=== PATIENT | female | born 1985 | race Caucasian/White ===

== ENCOUNTER 2016-10-28 19:25 | Emergency (ER) | payer MEDICAID, OTHER ==
[~2016-10-28] VITALS: Ht 167.6 cm; Wt 67.0 kg
[~2016-10-28 19:25] MED LIST: DENIES MEDS
[2016-10-28 19:41] VITALS: Ht 167.6 cm; Wt 67.0 kg
[2016-10-28] MEDS ORDERED: AZIT250T94 PO (22:07)
[2016-10-28] MEDS ORDERED: ACET500C5 PO (22:08)
--- NOTE | 2016-10-28 22:09 | ERD ---
ER Documentation Chief Complaint Date/Time DATE: 10/28/16 TIME: 22:08 Chief Complaint cough x 1 week HPI Patient is a 31-year-old female, A2, who presents to the emergency separtment with a cough 1 week. Patient states that her cough is productive with yellow sputum production. Patient also reports yellow rhinorrhea. Patient states that she has not tried any medications yet. Patient states today she started having generalized body aches. Her current pain level is a 7 out of 10. Patient denies any ear pain, throat pain, chest pain, shortness of breath, abdominal pain, nausea, vomiting. Patient last menstrual period was approximately 2 months ago, does not recall exact date. Patient denies any pelvic pain, excessive vaginal discharge or vaginal bleeding. Patient has not seen an HIGHWAY ENGINEERING TECHNICIAN yet. ROS All systems reviewed and are negative except as per history of present illness. Medications Home Meds Active Scripts Acetaminophen* (Tylophen*) 500 Mg Capsule, 1 CAP PO Q6H Y for PAIN AND OR ELEVATED TEMP, #20 CAP Prov:VALERIA CHURCHILL PA-C 10/28/16 Azithromycin* (Zithromax*) 250 Mg Tablet, 250 MG PO .ZPACK DIRECTED, #6 TAB TAKE 500 MG (2 TABS) THE FIRST DAY THEN 250 MG (1 TAB) DAYS 2-5 Prov:VALERIA CHURCHILL PA-C 10/28/16 Reported Medications [Denies Meds] No Conflict Check 01/11/11 Allergies Allergies: Coded Allergies: No Known Drug Allergy (Verified Allergy, Mild, 01/11/11) PMhx/Soc History of Surgery: No Anesthesia Reaction: No Hx Neurological Disorder: No Hx Respiratory Disorders: No Hx Cardiac Disorders: No Hx Psychiatric Problems: No Hx Miscellaneous Medical Probl: No Hx Alcohol Use: No Hx Substance Use: No Hx Tobacco Use: No Physical Exam Vitals Vital Signs Date Time Temp Pulse Resp B/P Pulse Ox O2 Delivery O2 Flow Rate FiO2 10/28/16 23:20 97.9 104 16 115/56 100 Room Air 10/28/16 19:41 98.6 116 20 133/70 99 Physical Exam GENERAL: Well-developed, well-nourished female. Appears in no acute distress. HEAD: Normocephalic, atraumatic. No deformities or ecchymosis. EYE: Pupils equal, round, and reactive to light. EOMs intact. No conjunctival erythema. No scleral icterus. No eye discharge. ENT: External ear without any masses or tenderness. Auditory canals clear bilaterally. TM visualized bilaterally, non-erythematous, non-bulging. Nasal mucosa pink with no discharge. Oropharynx is pink without any tonsillar erythema or exudates. No uvula deviation. No kissing tonsils. NECK: Supple. No lymphadenopathy or thyromegaly. No meningismus. Trachea midline. LUNG: Clear to auscultation bilaterally. No rhonchi, wheezing, rales or coarse breath sounds. HEART: Regular rate and rhythm. No murmurs, rubs or gallops. ABDOMEN: Soft, nontender, and nondistended. Positive bowel sounds in all four quadrants. No rebound tenderness, no guarding. (-) McBurney's point tenderness. No CVA tenderness. BACK: No midline tenderness. Palpation in the bilateral lumbar paraspinalis muscles. EXTREMITES: Equal pulses bilaterally. No peripheral clubbing, cyanosis or edema. No unilateral leg swelling. NEUROLOGIC: Alert and oriented to person, place and time. Moving all four extremities. 5/5 strength in all extremities. Normal speech. Steady gait. Negative Brudzinski sign. Negative Kernig sign. SKIN: Normal color. Warm and dry. No rashes or lesions. Results 24 hrs Laboratory Tests Test 10/28/16 22:56 Bedside Urine Blood 2+ Bedside Urine Glucose (UA) Negative Bedside Urine Ketones (LAB) Negative Bedside Urine Leukocyte Esterase (L Negative Bedside Urine Nitrite (LAB) Negative Bedside Urine Protein (LAB) 2+ Bedside Urine pH (LAB) 7.0 Procedures/MDM MEDICAL DECISION MAKING: This is a 31-year-old female who presents with a productive cough 1 week. She states that she recently found out that she was however she denies any vaginal bleeding, vaginal discharge or pain. Patient has not seen OBGYN yet. Vital signs were reviewed. Patient was afebrile. Patient was not hypoxic. ENT exam was normal. Lung exam is normal. Abdominal exam is normal. Urine test was positive. Urine dip was negative for infection. Given that the patient is , chest x-ray was not obtained. Given these findings , the patients presentation is most consistent with acute bronchitis. I have a much lower clinical concern for bacterial infections including pneumonia, meningitis, sinusitis, otitis externa, acute otitis media, strep pharyngitis, epiglottitis, peritonsillar abscess, UTI or pyelonephritis. I will empirically treat patient for acute bronchitis with antibiotics. PRESCRIPTIONS: Tylenol Z-josemanuel DISCHARGE: At this time, patient is stable for discharge and outpatient management. Supportive therapies such as OTC throat lozenges, salt water gurgles, popsicles and jello discussed. I have instructed the patient to follow-up with his/her primary care physician in 1-2 days. I have instructed the patient to promptly return to the ER for any new or worsening symptoms including increased pain, swelling, fever, nausea, vomiting, weakness or difficulty breathing. The patient and/or family expressed understanding of and agreement with this plan. All questions were answered. Home care instructions were provided. Departure Diagnosis: Primary Impression: Acute bronchitis Bronchitis organism: unspecified organism Qualified Code: J20.9 - Acute bronchitis, unspecified organism Additional Impression: Weeks of gestation: unspecified Qualified Code: Z33.1 - , unspecified gestational age Condition: Stable Patient Instructions: Acute Bronchitis, , New Dx Referrals: [facility] YOU HAVE RECEIVED A MEDICAL SCREENING EXAM AND THE RESULTS INDICATE THAT YOU DO NOT HAVE A CONDITION THAT REQUIRES URGENT TREATMENT IN THE EMERGENCY DEPARTMENT. FURTHER EVALUATION AND TREATMENT OF YOUR CONDITION CAN WAIT UNTIL YOU ARE SEEN IN YOUR DOCTORS OFFICE WITHIN THE NEXT 1-2 DAYS. IT IS YOUR RESPONSIBILITY TO MAKE AN APPOINTMENT FOR FOLOW-UP CARE. IF YOU HAVE A PRIMARY DOCTOR --you should call your primary doctor and schedule an appointment IF YOU DO NOT HAVE A PRIMARY DOCTOR YOU CAN CALL OUR PHYSICIAN REFERRAL HOTLINE AT IF YOU CAN NOT AFFORD TO SEE A PHYSICIAN YOU CAN CHOSE FROM THE FOLLOWING [facility] [address] [facility]. [facility] [address] [facility]. [facility] [address] [facility] [address] [facility]. [facility] [address] [facility] [facility]. [address] [facility]. [facility] YOU HAVE RECEIVED A MEDICAL SCREENING EXAM AND THE RESULTS INDICATE THAT YOU DO NOT HAVE A CONDITION THAT REQUIRES URGENT TREATMENT IN THE EMERGENCY DEPARTMENT. FURTHER EVALUATION AND TREATMENT OF YOUR CONDITION CAN WAIT UNTIL YOU ARE SEEN IN YOUR DOCTORS OFFICE WITHIN THE NEXT 1-2 DAYS. IT IS YOUR RESPONSIBILITY TO MAKE AN APPOINTMENT FOR FOLOW-UP CARE. IF YOU HAVE A PRIMARY DOCTOR --you should call your primary doctor and schedule and appointment IF YOU DO NOT HAVE A PRIMARY DOCTOR YOU CAN CALL OUR PHYSICIAN REFERRAL HOTLINE AT . IF YOU CAN NOT AFFORD TO SEE A PHYSICIAN YOU CAN CHOSE FROM THE FOLLOWING [facility] INSTITUTIONS: [facility] [address] [place] [address] [facility] [address] [place] [address] [facility] [address] [place] [address] [facility] TECHN[place] [address] [facility] [address] [place] [address] OFFICE FAX YEVGENIY OMER [address] [place] [address] [address] [place] [address] [place] [address] FABIANA VELÁZQUEZNOMAN [address] [facility], [address], [facility] [address] [address] [address] [place] [address] [facility] [place] [address] [place] [address] [phone] [address] [facility] [address] - [address], [facility] [address] [address] [address] [facility] [address], [facility] [id number] [address] [address] [place] [address] Additional Instructions: Call your primary care doctor TOMORROW for an appointment during the next 1-2 days.See the doctor sooner or return here if your condition worsens before your appointment time. See [facility] TECHNICIAN referral list. Schedule appointment [facility]IGHW[facility] ENGINEERING TECHNICIAN as soon as possible for care. Drink a lot of fluids. Take only Tylenol for pain or fever. VALERIA CHURCHILL PA-C Oct 28, 2016 22:08
[2016-10-28 22:56] LABS: URINE BLOOD (Dip) POC 2+ (NEGATIVE)
[2016-10-28 23:20] VITALS: BP 115/56; PULSE 104; RESP 16; TEMP 97.9
== END 2016-10-28 23:21 | disposition home or self-care (01) ==
LOC: FTE 19:25
DX: J20.9 Acute bronchitis, unspecified (principal); Z33.1 Pregnant state, incidental
CPT/HCPCS: 81003; Z7502; 99283

== ENCOUNTER 2016-12-22 11:36 | Emergency (ER) | payer OTHER ==
[~2016-12-22] VITALS: Wt 74.0 kg
[~2016-12-22 11:36] MED LIST changes: +ACET500C5 PO; +AZIT250T94 PO
[2016-12-22] MEDS ORDERED: AZIT250T94 PO (12:26)
[2016-12-22] MEDS ORDERED: ALBU18HF INHALATION (12:26)
[2016-12-22] MEDS ORDERED: CETI10CA PO (12:26)
--- NOTE | 2016-12-22 12:28 | ERD ---
ER Documentation Chief Complaint Date/Time DATE: 12/22/16 TIME: 12:27 Chief Complaint FLU SYMPTOMS X 1 WEEK HPI This 31-year-old female presents with cough mainly for last week. She is in early . She denies fevers. She has productive sputum. She is here the child with similar cough. She is worried that they have some mold in the house and this may be because of her cough. ROS All systems reviewed and are negative except as per history of present illness. Medications Home Meds Active Scripts Albuterol Sulfate* (Ventolin HFA*) 18 Gm Hfa.aer.ad, 2 PUFF INHALATION Q4H, #1 INHALER Prov:MARLI HUANG MD 12/22/16 Azithromycin* (Zithromax*) 250 Mg Tablet, 250 MG PO .ZPACK DIRECTED, #6 TAB TAKE 500 MG (2 TABS) THE FIRST DAY THEN 250 MG (1 TAB) DAYS 2-5 Prov:MARLI HUANG MD 12/22/16 Cetirizine Hcl* (Zyrtec*) 10 Mg Capsule, 10 MG PO DAILY, #15 TAB.CHEW Prov:MARLI HUANG MD 12/22/16 Acetaminophen* (Tylophen*) 500 Mg Capsule, 1 CAP PO Q6H Y for PAIN AND OR ELEVATED TEMP, #20 CAP Prov:VALERIA CHURCHILL PA-C 10/28/16 Azithromycin* (Zithromax*) 250 Mg Tablet, 250 MG PO .ZPACK DIRECTED, #6 TAB TAKE 500 MG (2 TABS) THE FIRST DAY THEN 250 MG (1 TAB) DAYS 2-5 Prov:VALERIA CHURCHILL PA-C 10/28/16 Reported Medications [Denies Meds] No Conflict Check 01/11/11 Allergies Allergies: Coded Allergies: No Known Drug Allergy (Verified Allergy, Mild, 01/11/11) PMhx/Soc History of Surgery: No Anesthesia Reaction: No Hx Neurological Disorder: No Hx Respiratory Disorders: No Hx Cardiac Disorders: No Hx Psychiatric Problems: No Hx Miscellaneous Medical Probl: No Hx Alcohol Use: No Hx Substance Use: No Hx Tobacco Use: No Physical Exam Vitals Vital Signs Date Time Temp Pulse Resp B/P Pulse Ox O2 Delivery O2 Flow Rate FiO2 12/22/16 11:39 98.0 91 18 123/64 99 Physical Exam Const: [] Alert, not ill-appearing, speaking complete sentences Head: Atraumatic Eyes: Normal Conjunctiva ENT: Normal External Ears, Nose and Mouth. 3+ nasal congestion. Neck: Full range of motion..~ No meningismus. Resp: Clear to auscultation bilaterally. Slight wheezy cough without wheeze or rales at rest and no retractions per Cardio: Regular rate and rhythm, no murmurs Abd: Soft, non tender, non distended. Normal bowel sounds Skin: No petechiae or rashes Back: No midline or flank tenderness Ext: No cyanosis, or edema Neur: Awake and alert Psych: Normal Mood and Affect Procedures/MDM Patient presents with productive cough for last 1-2 weeks. X-rays deferred given state. Signs or symptoms do not suggest pneumonia, hypoxemia, respiratory distress. Given the productive cough she will be treated with Zithromax although some of her symptoms may be allergic will be given a trial of Zyrtec and Ventolin as well. Patient is advised to follow-up with primary doctor for allergy testing despite treatment. Patient should otherwise return to the ER for new or worsening symptoms. The patient was stable with no new complaints during the ER course. Clinically, there is no current evidence to suggest meningitis, sepsis, acute abdomen, pneumonia, acute coronary syndrome, pulmonary embolism, or any other emergent condition appearing to require further evaluation or hospitalization. The patient should certainly return for any new or worsening symptoms per the aftercare instructions. They should otherwise follow-up with her primary care doctor for reevaluation this week. Departure Diagnosis: Primary Impression: Cough Additional Impression: Upper respiratory infection URI type: unspecified URI Qualified Code: J06.9 - Upper respiratory tract infection, unspecified type Condition: Stable Patient Instructions: Cough, Chronic, Uncertain Cause, (Adult) Additional Instructions: Recommend allergy testing with primary doctor for persistent cough despite treatment. We will treat for allergies as well as upper respiratory infection currently. Recheck for new or worsening symptoms with primary care doctor as directed. MARLI HUANG MD Dec 22, 2016 12:28
[2016-12-22 13:47] VITALS: BP 106/52; PULSE 86; RESP 18; TEMP 98.6
== END 2016-12-22 13:51 | disposition home or self-care (01) ==
LOC: FTE 11:36
DX: O99.89 Other specified diseases and conditions complicating pregnancy, childbirth and the puerperium (principal); R05 Cough; O99.52 Diseases of the respiratory system complicating childbirth; J06.9 Acute upper respiratory infection, unspecified; Z3A.00 Weeks of gestation of pregnancy not specified
CPT/HCPCS: 99284

== ENCOUNTER 2017-05-05 20:59 | Outpatient (CLI) | payer OTHER ==
[~2017-05-05] VITALS: Ht 162.6 cm; Wt 89.7 kg
[~2017-05-05 20:59] MED LIST changes: +ALBU18HF INHALATION; +CETI10CA PO
[2017-05-05 21:24] VITALS: Ht 162.6 cm; Wt 89.7 kg
[2017-05-05 21:25] VITALS: BP 107/54; PULSE 96; RESP 16
--- NOTE | 2017-05-05 23:54 | RADRPT ---
PROCEDURE: US OB. CLINICAL INDICATION: Estimated weight, labor. Clinical estimate gestational age is 35 weeks 1 day with estimated date of delivery 06/08/2017 TECHNIQUE: Multiple sonographic images of the pelvis were obtained. The images were reviewed on a PACS workstation. COMPARISON: 02/02/2017 FINDINGS: There is a single live intrauterine gestation. Cardiac activity is present with 122 beats per minut e. There is a cephalic presentation. Measurements were made in order to determine age. The results are as follows: BPD =9.09 cm, 36 weeks 6 days HC =32.11 cm, 36 weeks 2 days AC =31.96 cm, 35 weeks 6 days FL =6.74 cm, 34 weeks 5 days. Estimated gestational age of approximately 36 weeks 0 days. The estimated date of delivery is 06/02/2017. The EFW = 2748 g, 6 pounds 1 ounce, 64.2% . The placenta is posterior and grade 1. There is no evidence for an abruption. There is a normal amount of amniotic fluid with an ALEXANDER = 15.12 cm. IMPRESSION: Single live intrauterine gestation of approximately 36 weeks 0 days based on ultrasound measurements . The estimated date of delivery is 06/02/2017 . RPTAT: HJES .Shiraz Gavin MD, Date Time Electronically viewed and signed by .Shiraz Gavin MD, MD on 05/05/2017 23:53 .S/
--- NOTE | 2017-05-06 00:21 | PN ---
Triage Information Date/Time Weeks of Gestation 38 weeks : 7 Para: 3 Diabetes: none Hypertention: none Additional information 31-year-old with IUP at 38 weeks presented with complaint of uterine contractions. She denied any leaking of fluid, vaginal bleeding or decreased movement. She was noted to be 1 cm dilated, long and high. NST was category 1. She was observed for couple of hours after hydration and repeat examination did not show any cervical change. Objective Vital Signs Date Time Temp Pulse Resp B/P Pulse Ox O2 Delivery O2 Flow Rate FiO2 05/05/17 21:25 98.1 96 16 107/54 Room Air Heart Rate: 130's Contractions: < 5 Minutes Apart Exam General appearance: Alert and oriented 4. Patient is not in any acute distress Abdomen: Soft, gravid, nontender, fundal height consistent with gestational age NST: Category 1 Cervical exam 1 cm/long and high No cervical change noted after observation in triage and hydration ALEXANDER: 15 Results/Medications Imaging Results PROCEDURE: US OB. CLINICAL INDICATION: Estimated weight, labor. Clinical estimate gestational age is 35 weeks 1 day with estimated date of delivery 06/08 TECHNIQUE: Multiple sonographic images of the pelvis were obtained. The images were reviewed on a PACS workstation. COMPARISON: 02/02/2017 FINDINGS: There is a single live intrauterine gestation. Cardiac activity is present with 122 beats per minute. There is a cephalic presentation. Measurements were made in order to determine age. The results are as follows: BPD = 9.09 cm, 36 weeks 6 days HC = 32.11 cm, 36 weeks 2 days AC = 31.96 cm, 35 weeks 6 days FL = 6.74 cm, 34 weeks 5 days. Estimated gestational age of approximately 36 weeks 0 days. The estimated date of delivery is 06/02/2017. The EFW = 2748 g, 6 pounds 1 ounce, 64.2% . The placenta is posterior and grade 1. There is no evidence for an abruption. There is a normal amount of amniotic fluid with an ALEXANDER = 15.12 cm. IMPRESSION: Single live intrauterine gestation of approximately 36 weeks 0 days based on ultrasound measurements. The estimated date of delivery is 06/02/2017 . Assessment/Plan IUP at 38 weeks False labor pain No cervical change Appropriate growth NST category 1 Normal ALEXANDER DC home Follow-up within 24-48 hours with primary OB Strict labor precaution and kick counts discussed with the patient RT triage as needed Patient verbalized understanding CECILIA MIDDLETON MD May 06, 2017 00:21
== END 2017-05-06 00:05 | disposition home or self-care (01) ==
LOC: OBT 20:59 → L-D 21:02 → OBT 05-06 00:05
PROVIDERS: ATTEND Obstetrics & Gynecology
DX: O62.9 Abnormality of forces of labor, unspecified (principal); Z3A.38 38 weeks gestation of pregnancy
CPT/HCPCS: 76815; Z7500; G0463

== ENCOUNTER 2017-11-29 02:05 | Emergency (ER) | END 2017-11-29 06:04 | disposition home or self-care (01) ==

== ENCOUNTER 2017-12-13 17:52 | Emergency (ER) | END 2017-12-13 19:36 | disposition home or self-care (01) ==

== ENCOUNTER 2018-07-23 10:52 | Emergency (ER) | END 2018-07-23 11:11 | disposition home or self-care (01) ==

== ENCOUNTER 2019-01-03 21:05 | Emergency (ER) | payer OTHER ==
[~2019-01-03] VITALS: Ht 167.6 cm; Wt 63.6 kg
[~2019-01-03 21:05] MED LIST changes: -ACET500C5 PO; -ALBU18HF INHALATION; +ALBU8.5H8 INH; -AZIT250T94 PO; +BENZ1LOZ52 MM; -DENIES MEDS; +FLUT9.9S NASAL; +IBUP-1542 PO; +PREN1TAB17 PO; +SODI126M NASAL
[2019-01-03 21:29] VITALS: Ht 167.6 cm; Wt 63.6 kg
[2019-01-04] MEDS ORDERED: NITR-58 PO (01:55)
--- NOTE | 2019-01-04 02:01 | ERD ---
ER Documentation Chief Complaint Chief Complaint Hematuria x 2 days and cough HPI Is a 33-year-old female who states she has had hematuria for the past 2 days. Also dysuria and frequency. However she is also not sure if she could be . No fever. No nausea or vomiting. ROS All systems reviewed and are negative except as per history of present illness. Medications Home Meds Active Scripts Nitrofurantoin Monohyd Macrocr* (Macrobid*) 100 Mg Capsr, 100 MG PO BID for 7 Days, CAP Prov:ARLENE VASQUEZ PA-C 01/04/19 Ibuprofen* (Motrin*) 600 Mg Tab, 600 MG PO Q6, #30 TAB Prov:MARIUSZ PATINO PA-C 07/23/18 Albuterol Sulfate* (Proair HFA*) 8.5 Gm Hfa.aer.ad, 2 PUFF INH Q4H PRN for WHEEZING AND SOB, #1 INHALER Prov:ISAC MARTINEZ NP 12/13/17 Cetirizine Hcl* (Zyrtec*) 10 Mg Capsule, 10 MG PO DAILY, #30 TAB.CHEW Prov:ISAC MARTINEZ NP 12/13/17 Fluticasone Propionate (Flonase Allergy Relief) 9.9 Ml [place].susp, 1 SPRAY NASAL BID, #1 BOTTLE TO EACH NOSTRIL Prov:ISAC MARTINEZ TEST SPECIALIST 12/13/17 Benzocaine/Menthol* (Cepacol* Sore Throat Lozenges) 1 Each Lozenge, 1 EACH MM q2h PRN for SORE THROAT, #20 LOZENGE Prov:JAC MCGINNIS NP 11/29/17 Fluticasone Propionate (Flonase Allergy Relief) 9.9 Ml [place].susp, 1 SPRAY NASAL DAILY, #1 BOTTLE TO EACH NOSTRIL Prov:JAC MCGINNIS NP 11/29/17 Sodium Chloride (Saline Nasal Mist) 126 Ml Mist, 2 SPRAY NASAL Q2H PRN for NASAL CONGESTION, #1 BOTTLE Prov:JAC MCGINNIS. TEST SPECIALIST 11/29/17 Reported Medications Vit-Iron Fumarate-FA ( Tablet) 1 Each Tablet, 1 TAB PO DAILY, TAB 06/04/17 Allergies Allergies: Coded Allergies: No Known Drug Allergy (Verified Allergy, Mild, 05/05/17) PMhx/Soc Medical and Surgical Hx: pt denies Medical Hx, pt denies Surgical Hx History of Surgery: No Anesthesia Reaction: No Hx Neurological Disorder: No Hx Respiratory Disorders: No Hx Cardiac Disorders: No Hx Psychiatric Problems: No Hx Miscellaneous Medical Probl: No Hx Alcohol Use: No Hx Substance Use: No Hx Tobacco Use: No Smoking Status: Never smoker FmHx Family History: No diabetes Physical Exam Vitals Vital Signs Date Temp Pulse Resp B/P (MAP) Pulse Ox O2 O2 Flow FiO2 Time Delivery Rate 01/03/19 99.1 93 16 121/56 100 21:29 (77) Physical Exam INITIAL VITAL SIGNS: Reviewed by me GENERAL: Awake, alert and oriented x 4, well appearing, nontoxic, speaking in full sentences. No acute distress HEAD: Atraumatic NECK: Supple. No masses. Full range of motion. No meningismus. No midline tenderness. RESPIRATORY: Clear to auscultation bilaterally. Symmetric chest wall rise. No wheezing or rales. No accessory muscle use. CV: Regular rate and rhythm. No murmurs, rubs, or gallops. ABDOMEN: Soft, non-distended. Nontender. Negative Broadus. Negative McBurneys point tenderness. No CVA tenderness bilaterally. No guarding. No rebound. : Deffered. Result Diagram: 01/03/19 2355 01/03/19 2355 Results 24 hrs Laboratory Tests Test 01/03/19 23:55 01/03/19 23:59 White Blood Count 14.0 10^3/ul Red Blood Count 4.69 10^6/ul Hemoglobin 12.6 g/dl Hematocrit 40.4 % Mean Corpuscular Volume 86.1 fl Mean Corpuscular Hemoglobin 26.9 pg Mean Corpuscular Hemoglobin Concent 31.2 g/dl Red Cell Distribution Width 14.2 % Platelet Count 403 10^3/UL Mean Platelet Volume 9.9 fl Immature Granulocytes % 0.300 % Neutrophils % 66.7 % Lymphocytes % 23.3 % Monocytes % 6.3 % Eosinophils % 2.8 % Basophils % 0.6 % Nucleated Red Blood Cells % 0.0 /100WBC Immature Granulocytes # 0.040 10^3/ul Neutrophils # 9.3 10^3/ul Lymphocytes # 3.3 10^3/ul Monocytes # 0.9 10^3/ul Eosinophils # 0.4 10^3/ul Basophils # 0.1 10^3/ul Nucleated Red Blood Cells # 0.0 10^3/ul Urine Color YELLOW Urine Clarity TURBID Urine pH 8.0 Urine Specific Steele 1.021 Urine Ketones NEGATIVE mg/dL Urine Nitrite POSITIVE mg/dL Urine Bilirubin NEGATIVE mg/dL Urine Urobilinogen NEGATIVE mg/dL Urine Leukocyte Esterase 3+ Tesfaye/ul Urine Microscopic RBC 21 /HPF Urine Microscopic WBC > 182 /HPF Urine Squamous Epithelial Cells FEW /HPF Urine Bacteria MODERATE /HPF Urine Mucus MODERATE /HPF Urine Hemoglobin 2+ mg/dL Urine Glucose NEGATIVE mg/dL Urine Total Protein 2+ mg/dl Sodium Level 142 mmol/L Potassium Level 3.9 mmol/L Chloride Level 103 mmol/L Carbon Dioxide Level 28 mmol/L Anion Gap 11 Blood Urea Nitrogen 13 mg/dl Creatinine 0.59 mg/dl Est Glomerular Filtrat Rate mL/min > 60 mL/min Glucose Level 74 mg/dl Calcium Level 9.2 mg/dl Total Bilirubin 0.1 mg/dl Direct Bilirubin 0.00 mg/dl Indirect Bilirubin 0.1 mg/dl Aspartate Amino Transf (AST/SGOT) 24 IU/L Alanine Aminotransferase (ALT/SGPT) 25 IU/L Alkaline Phosphatase 87 IU/L Total Protein 8.4 g/dl Albumin 4.5 g/dl Globulin 3.90 g/dl Albumin/Globulin Ratio 1.15 Lipase 56 U/L Serum HCG, Qualitative POSITIVE Beta HCG, Quantitative 14.4 mIU/ml POC Beta HCG, Qualitative POSITIVE Procedures/MDM 33-year-old female presents with hematuria. Her urine came back positive for which she was unaware. Therefore labs were ordered. Her beta hCG was 14 and ultrasound did not show any IUP. She was given copies of the results and instructed to come back in 2-3 days for follow-up examination as ectopic cannot be ruled out at this time. She also had a urinary tract infection and will be treated outpatient with Macrobid. Patient counseled regarding my diagnostic impression and care plan. Prior to discharge all questions answered. Pt agrees with treatment plan and understands strict return precautions. Pt is instructed to follow up with primary care provider within 24- 48 hours. Precautionary instructions provided including instructions to return to the ER if not improving or for any worsening or changing symptoms or concerns. Departure Diagnosis: Primary Impression: Cystitis Additional Impression: Threatened Condition: Stable Patient Instructions: Cystitis Referrals: [facility] [place] [address] [facility] [address] [place] [address] OFFICE FAX YEVGENIY OMER [address] [place] [address] [address] [place] [place] [address] [place] [address] [address] [facility] [facility] [address] [address], [address], [facility] [address] [address] [facility] [facility] [address] [place] [address] [facility] [address] [place] [address] [facility] [address] - [address] [facility] [facility] [address] [address], [place] [address] [facility]. [address], [facility] [address] [address] [facility] [address] [place], [place] [id number] Additional Instructions: Call your primary care doctor TOMORROW for an appointment during the next 1-2 days.See the doctor sooner or return here if your condition worsens before your appointment time. ARLENE VASQUEZ PA-C Jan 04, 2019 02:01
[2019-01-04 02:12] VITALS: BP 118/58; PULSE 107; RESP 18
== END 2019-01-04 02:14 | disposition home or self-care (01) ==
LOC: FTE 21:05
DX: O23.11 Infections of bladder in pregnancy, first trimester (principal); O20.0 Threatened abortion; Z3A.01 Less than 8 weeks gestation of pregnancy
CPT/HCPCS: 76801; 76817; 80053; 81001; 81025; 83690; 84702; 84703; 85025; 86900; 86901; Z7502

== ENCOUNTER 2019-01-14 05:29 | Emergency (ER) | payer OTHER ==
[~2019-01-14] VITALS: Wt 62.8 kg
[~2019-01-14 05:29] MED LIST changes: +NITR-58 PO
[2019-01-14 05:40] VITALS: BP 128/61; PULSE 102; RESP 18
--- NOTE | 2019-01-14 07:36 | ERD ---
ER Documentation Chief Complaint Chief Complaint VAG BLEED, 4 WEEKS PG HPI 33-year-old female is here complaining of vaginal bleeding during . She is about 4 weeks . States the bleeding is like a period. Also has mild lower pelvic cramping. No nausea or vomiting. No urinary symptoms. No fever. ROS All systems reviewed and are negative except as per history of present illness. Medications Home Meds Active Scripts Nitrofurantoin Monohyd Macrocr* (Macrobid*) 100 Mg Capsr, 100 MG PO BID for 7 Days, CAP Prov:ARLENE VASQUEZ PA-C 01/04/19 Ibuprofen* (Motrin*) 600 Mg Tab, 600 MG PO Q6, #30 TAB Prov:MARIUSZ PATINO PA-C 07/23/18 Albuterol Sulfate* (Proair HFA*) 8.5 Gm Hfa.aer.ad, 2 PUFF INH Q4H PRN for WH EEZING AND SOB, #1 INHALER Prov:ISAC MARTINEZ NP 12/13/17 Cetirizine Hcl* (Zyrtec*) 10 Mg Capsule, 10 MG PO DAILY, #30 TAB.CHEW Prov:ISAC MARTINEZ CANE LOADER 12/13/17 Fluticasone Propionate (Flonase Allergy Relief) 9.9 Ml [place].susp, 1 SPRAY NASAL BID, #1 BOTTLE TO EACH NOSTRIL Prov:ISAC MARTINEZ NP 12/13/17 Benzocaine/Menthol* (Cepacol* Sore Throat Lozenges) 1 Each Lozenge, 1 EACH MM q2h PRN for SORE THROAT, #20 LOZENGE Prov:JAC MCGINNIS. ALVARO 11/29/17 Fluticasone Propionate (Flonase Allergy Relief) 9.9 Ml [place].susp, 1 SPRAY NASAL DAILY, #1 BOTTLE TO EACH NOSTRIL Prov:JAC MCGINNIS. CANE LOADER 11/29/17 Sodium Chloride (Saline Nasal Mist) 126 Ml Mist, 2 SPRAY NASAL Q2H PRN for NASAL CONGESTION, #1 BOTTLE Prov:JAC MCGINNIS. CANE LOADER 11/29/17 Reported Medications Vit-Iron Fumarate-FA ( Tablet) 1 Each Tablet, 1 TAB PO DAILY, TAB 06/04/17 Allergies Allergies: Coded Allergies: No Known Drug Allergy (Verified Allergy, Mild, 05/05/17) PMhx/Soc History of Surgery: No Anesthesia Reaction: No Hx Neurological Disorder: No Hx Respiratory Disorders: No Hx Cardiac Disorders: No Hx Psychiatric Problems: No Hx Miscellaneous Medical Probl: No Hx Alcohol Use: No Hx Substance Use: No Hx Tobacco Use: No FmHx Family History: No diabetes Physical Exam Vitals Vital Signs Date Temp Pulse Resp B/P (MAP) Pulse Ox O2 O2 Flow FiO2 Time Delivery Rate 01/14/19 96.7 102 18 128/61 100 05:40 (83) Physical Exam INITIAL VITAL SIGNS: Reviewed by me GENERAL: Awake, alert and oriented x 4, well appearing, nontoxic, speaking in full sentences. No acute distress HEAD: Atraumatic NECK: Supple. No masses. Full range of motion. No meningismus. No midline tenderness. RESPIRATORY: Clear to auscultation bilaterally. Symmetric chest wall rise. No wheezing or rales. No accessory muscle use. CV: Regular rate and rhythm. No murmurs, rubs, or gallops. ABDOMEN: Soft, non-distended. Nontender. Negative [place]. Negative [place] point tenderness. No CVA tenderness bilaterally. No guarding. No rebound. Result Diagram: 01/14/19 0745 Results 24 hrs Laboratory Tests Test 01/14/19 07:45 White Blood Count 10.7 10^3/ul Red Blood Count 4.59 10^6/ul Hemoglobin 12.2 g/dl Hematocrit 38.8 % Mean Corpuscular Volume 84.5 fl Mean Corpuscular Hemoglobin 26.6 pg Mean Corpuscular Hemoglobin Concent 31.4 g/dl Red Cell Distribution Width 13.6 % Platelet Count 431 10^3/UL Mean Platelet Volume 9.3 fl Immature Granulocytes % 0.400 % Neutrophils % 67.4 % Lymphocytes % 24.7 % Monocytes % 6.2 % Eosinophils % 0.8 % Basophils % 0.5 % Nucleated Red Blood Cells % 0.0 /100WBC Immature Granulocytes # 0.040 10^3/ul Neutrophils # 7.2 10^3/ul Lymphocytes # 2.7 10^3/ul Monocytes # 0.7 10^3/ul Eosinophils # 0.1 10^3/ul Basophils # 0.1 10^3/ul Nucleated Red Blood Cells # 0.0 10^3/ul Urine Color YELLOW Urine Clarity CLOUDY Urine pH 7.0 Urine Specific [place] 1.027 Urine Ketones TRACE mg/dL Urine Nitrite NEGATIVE mg/dL Urine Bilirubin NEGATIVE mg/dL Urine Urobilinogen NEGATIVE mg/dL Urine Leukocyte Esterase 2+ [place]/ul Urine Microscopic RBC 4 /HPF Urine Microscopic WBC 127 /HPF Urine Squamous Epithelial Cells FEW /HPF Urine Bacteria FEW /HPF Urine Mucus FEW /HPF Urine Hemoglobin 3+ mg/dL Urine Glucose NEGATIVE mg/dL Urine Total Protein 1+ mg/dl Beta HCG, Quantitative 1353.5 mIU/ml Procedures/MDM The differential diagnosis includes but is not limited to threatened/incomplete/inevitable/complete , ectopic , non- related bleeding, and others. Us shows No definite intrauterine gestation seen. Interval development Small sac-like structure containing debris within the canal which may represent a tiny intrauterine . No heartbeat, pole or yolk sac is seen and there is a probable small subchorionic hemorrhage. It is unclear if findings represent evidence of demise of very early intrauterine versus viable very early intrauterine . Ectopic cannot be ruled out. Correlation with quantitative serial beta HCG levels is therefore recommended. Beta hCG is increased from visit 10 days ago but overall still low. Patient should return in another 2 days for evaluation. Continues to have urinary tract infection and will be given Keflex. Patient counseled regarding my diagnostic impression and care cem n. Prior to discharge all questions answered. Pt agrees with treatment plan and understands strict return precautions. Pt is instructed to follow up with primary care provider within 24-48 hours. Precautionary instructions provided including instructions to return to the ER if not improving or for any worsening or changing symptoms or concerns. Departure Diagnosis: Primary Impression: Cystitis Additional Impression: Threatened Condition: ARLENE Guevara PA-C Jan 14, 2019 07:36
[2019-01-14] MEDS ORDERED: CEPH-443 PO (08:38)
== END 2019-01-14 09:03 | disposition home or self-care (01) ==
LOC: FTE 05:29
DX: O23.11 Infections of bladder in pregnancy, first trimester (principal); O20.0 Threatened abortion; Z3A.01 Less than 8 weeks gestation of pregnancy
CPT/HCPCS: 36415; 76801; 76817; 81001; 84702; 85025; 86900; 86901

== ENCOUNTER 2019-02-24 00:24 | Emergency (ER) | payer OTHER ==
[~2019-02-24] VITALS: Ht 165.1 cm; Wt 69.5 kg
[~2019-02-24 00:24] MED LIST changes: +CEPH-443 PO
[2019-02-24 00:29] VITALS: Ht 165.1 cm; Wt 69.5 kg
--- NOTE | 2019-02-24 02:18 | ERD ---
ER Documentation Chief Complaint Chief Complaint VAGINAL SPOTTING X TODAY. HPI This is a 33-year-old female who is stating she is 10 weeks and has had an ultrasound already last week by her MANAGER [employer] that showed a fetus in the uterus is complaining of some spotting tonight just prior to arrival there is some mild cramps but none now. No clots no back pain no fever ROS All systems reviewed and are negative except as per history of present illness. Medications Home Meds Active Scripts Albuterol Sulfate* (Proair HFA*) 8.5 Gm Hfa.aer.ad, 2 PUFF INH Q4H PRN for WHEEZING AND SOB, #1 INHALER Prov:ISAC MARTINEZ NP 12/13/17 Reported Medications Vit-Iron Fumarate-FA ( Tablet) 1 Each Tablet, 1 TAB PO DAILY, TAB 06/04/17 Discontinued Scripts Cephalexin* (Keflex*) 500 Mg Capsule, 500 MG PO TID for 5 Days, CAP Prov:ARLENE VASQUEZ PA-C 01/14/19 Nitrofurantoin Monohyd Macrocr* (Macrobid*) 100 Mg Capsr, 100 MG PO BID for 7 Days, CAP Prov:ARLENE VASQUEZ PA-C 01/04/19 Ibuprofen* (Motrin*) 600 Mg Tab, 600 MG PO Q6, #30 TAB Prov:MARIUSZ PATINO PA-C 07/23/18 Cetirizine Hcl* (Zyrtec*) 10 Mg Capsule, 10 MG PO DAILY, #30 TAB.CHEW Prov:ISAC MARTINEZ NP 12/13/17 Fluticasone Propionate (Flonase Allergy Relief) 9.9 Ml [place].susp, 1 SPRAY NASAL BID, #1 BOTTLE TO EACH NOSTRIL Prov:ISAC MARTINEZ NP 12/13/17 Benzocaine/Menthol* (Cepacol* Sore Throat Lozenges) 1 Each Lozenge, 1 EACH MM q2h PRN for SORE THROAT, #20 LOZENGE Prov:JAC MCGINNIS NP 11/29/17 Fluticasone Propionate (Flonase Allergy Relief) 9.9 Ml [place].susp, 1 SPRAY NASAL DAILY, #1 BOTTLE TO EACH NOSTRIL Prov:JAC MCGINNIS PUMP TECHNICIAN 11/29/17 Sodium Chloride (Saline Nasal Mist) 126 Ml Mist, 2 SPRAY NASAL Q2H PRN for NASAL CONGESTION, #1 BOTTLE Prov:JAC MCGINNIS. PUMP TECHNICIAN 11/29/17 Allergies Allergies: Coded Allergies: No Known Drug Allergy (Unverified Allergy, Mild, 02/24/19) PMhx/Soc History of Surgery: No Anesthesia Reaction: No Hx Neurological Disorder: No Hx Respiratory Disorders: No Hx Cardiac Disorders: No Hx Psychiatric Problems: No Hx Miscellaneous Medical Probl: No Hx Alcohol Use: No Hx Substance Use: No Hx Tobacco Use: No Smoking Status: Former smoker FmHx Family History: No coronary disease Physical Exam Vitals Vital Signs Date Temp Pulse Resp B/P (MAP) Pulse Ox O2 O2 Flow FiO2 Time Delivery Rate 02/24/19 97.7 111 18 151/72 98 00:29 (98) Physical Exam Const: Well-developed, well-nourished Head: Atraumatic, normocephalic Eyes: Normal Conjunctiva, PERRLA, EOMI, normal sclera, no nystagmus ENT: Normal External Ears, Nose and Mouth, moist mucus membranes. Neck: Full range of motion. No meningismus, no lymphadenopathy. Resp: Clear to auscultation bilaterally, no wheezing, rhonchi, rales Cardio: Regular rate and rhythm, no murmurs, S1 S2 present Abd: Soft, non tender x 4, non distended. Normal bowel sounds, no guarding or rebound, no pulsitile abdominal masses or bruits Skin: No petechiae or rashes, no ecchymosis , no maculopapular rash Back: No midline or flank tenderness Ext: No cyanosis, or edema, FROM x 4, normal inspection, neurovascularly intact x 4 Neur: Awake and alert, STR 5/5 x 4, sensation intact x 4, no focal findings, cerebellum intact Psych: Normal Mood and Affect Procedures/MDM Radiology Main Line: [phone] DIAGNOSTIC IMAGING REPORT Patient: YURIY BAUMAN : 1985 Age: 33 Sex: F MR #: [id number] DOS: 02/24/19 0212 Ordering MD: ELENITA AYALA DO Location: E/R Room/Bed: PROCEDURE: US OB Transabd 1St Tri CLINICAL INDICATION: with vaginal bleeding. TECHNIQUE: Sonographic imaging of the pelvis was performed using transabdominal technique. Grayscale and color Doppler was utilized. COMPARISON: January 14, 2019 FINDINGS: UTERUS: Measures approximately 10.2 x 8.2 x 7.4 cm with single intrauterine identified. Slight subchorionic implant bleed is suggested. MEASUREMENTS [place] Length: 3.83 cm, 10 weeks 5 days +/- 1 week Mean Gestational Sac Diameter: 4.40 cm, 10 weeks 1 day +/- 1 week Average Gestational Age By Ultrasound: 10 weeks 3 days +/- 5 days LMP estimated gestational age: 8 weeks 0 days AUA estimated date of delivery: September 19, 2019 Heart Rate: 182 RIGHT OVARY: Not identified. LEFT OVARY: Measures 3.4 x 1.9 x 2.1 cm without appreciated abnormality. Vascular flow is demonstrated. FREE FLUID: None. IMPRESSION: 1. Single intrauterine is identified with heart rate of 182 and average gestational age by ultrasound of 10 weeks 3 days +/- 5 days. 2. Slight subchorionic implant bleed is suggested. RPTAT:HGST Physician Unruly Date Time Electronically viewed and signed by Angle Guzman Physician on 02/24/2019 04:30 GT/ CC: ELENITA AYALA DO [id number] Patient's bleeding is likely due to subchorionic hemorrhage. I discussed with her threatened miscarriage precautions at home and signs and symptoms to return Patient feels much better at this time, and vital signs are normal, symptoms have improved. I did give strict instructions to return to the ED if symptoms continue or worsen, patient will otherwise follow-up with primary care physician. Patient understood instructions and agreed to plan. Disclaimer: Inadvertent spelling and grammatical errors are likely due to EHR/dictation software use and do not reflect on the overall quality of patient care. Also, please note that the electronic time recorded on this note does not necessarily reflect the actual time of the patient encounter. Departure Diagnosis: Primary Impression: Threatened miscarriage Condition: Stable ELENITA AYALA DO February 24, 2019 02:18
[2019-02-24 04:45] VITALS: BP 113/69; PULSE 94; RESP 17
== END 2019-02-24 04:45 | disposition home or self-care (01) ==
LOC: E/R 00:24
DX: O20.0 Threatened abortion (principal); Z3A.10 10 weeks gestation of pregnancy
CPT/HCPCS: 36415; 76801; 84702; 86900; 86901; Z7502

== ENCOUNTER 2019-03-16 21:46 | Emergency (ER) | payer OTHER ==
[~2019-03-16] VITALS: Ht 162.6 cm; Wt 71.4 kg
[~2019-03-16 21:46] MED LIST changes: -BENZ1LOZ52 MM; -CEPH-443 PO; -CETI10CA PO; -FLUT9.9S NASAL; -IBUP-1542 PO; -NITR-58 PO; -SODI126M NASAL
[2019-03-16 21:53] VITALS: BP 128/60; PULSE 108; RESP 22; Ht 162.6 cm; Wt 71.4 kg
[2019-03-16] MEDS ORDERED: ACETAMINOPHEN 500 MG TAB PO STA (23:45)
--- NOTE | 2019-03-16 23:55 | ERD ---
ER Documentation Chief Complaint Chief Complaint RT ARM/SHOULDER PAIN/RIGHT HIP PAIN S/P GROUND LEVEL FALL NO LOC 14WKS PREG HPI Patient is a 33 years old 14 weeks female with no known past medical history presenting to the clinic status post falling injury 2 hours ago. She reports walking to [employer] when she lost her balance fell. She states that she tried to catch her fall with her left arm outstretched and her right elbow flex. Patient denies abdominal contact with the pavement. Patient reports of 9 out of 10 right shoulder, right elbow, right wrist pain. Patient is also reporting of right hip pain that is tender to palpation (10/10) only. Patient states that there is no pain otherwise. Patient cannot recall if she landed on her right hip. Patient denies any vaginal bleeding, suprapubic pain, abdominal pain. ROS All systems reviewed and are negative except as per history of present illness. Medications Home Meds Active Scripts Acetaminophen* (Tylophen*) 500 Mg Capsule, 2 CAP PO Q8H PRN for PAIN AND OR ELEVATED TEMP for 7 Days, #42 CAP Prov:TAM ROMERO PA-C 03/17/19 Albuterol Sulfate* (Proair HFA*) 8.5 Gm Hfa.aer.ad, 2 PUFF INH Q4H PRN for WHEEZING AND SOB, #1 INHALER Prov:ISAC MARTINEZ NP 12/13/17 Reported Medications Vit-Iron Fumarate-FA ( Tablet) 1 Each Tablet, 1 TAB PO DAILY, TAB 06/04/17 Allergies Allergies: Coded Allergies: No Known Drug Allergy (Unverified Allergy, Mild, 02/24/19) PMhx/Soc Medical and Surgical Hx: pt denies Medical Hx, pt denies Surgical Hx History of Surgery: No Anesthesia Reaction: No Hx Neurological Disorder: No Hx Respiratory Disorders: No Hx Cardiac Disorders: No Hx Psychiatric Problems: No Hx Miscellaneous Medical Probl: No Hx Alcohol Use: No Hx Substance Use: No Hx Tobacco Use: No FmHx Family History: No diabetes, No coronary disease, No other Physical Exam Vitals Vital Signs Date Temp Pulse Resp B/P (MAP) Pulse Ox O2 O2 Flow FiO2 Time Delivery Rate 03/16/19 98.3 108 22 128/60 100 21:53 (82) Physical Exam Const: No acute distress Head: Atraumatic Eyes: Normal Conjunctiva Resp: Clear to auscultation bilaterally Cardio: Regular rate and rhythm, no murmurs Abd: Soft, non tender, non distended. Normal bowel sounds. Suprapubic tenderness. Skin: No petechiae or rashes Neur: Awake and alert Psych: Normal Mood and Affect Right Hip Exam: Mild tenderness to palpation. No gross deformity with skin intact. Right Shoulder Exam: Tenderness to palpation with limited ROM. No Gross deformity. Skin Intact. Right Elbow Exam: Tenderness to palpation with limited ROM. No Gross deformity. Skin Intact. Eight Wrist Exam: Tenderness to palpation with limited ROM. No Gross deformity. Skin Intact. Results 24 hrs Current Medications Medications Dose Sig/Zenaida Start Time Status Last (Trade) Ordered Route PRN Stop Time Admin Dose Reason Admin 1,000 mg ONCE STAT 03/16/19 DC 03/17/19 Acetaminophen PO 23:45 00:20 (Tylenol 03/16/19 23:48 Tab) Procedures/MDM Patient was seen and evaluated for falling injury. Patient's right upper extremity imaging are grossly unremarkable. Shared decision-making was made with patient and right hip x-ray was withheld. All images are grossly unremarkable. Patient is stable and ready for discharge. Patient was advised to avoid NSAIDs Departure Diagnosis: Primary Impression: Fall with no significant injury Encounter type: initial encounter Qualified Codes: W19.XXXA - Unspecified fall, initial encounter Condition: Stable Patient Instructions: Fall, Uncertain Cause Referrals: [facility] Additional Instructions: Patient advised to return to the ED immediately for new or worsening symptoms. Patient advised to follow up with primary care provider in the next 24-48 hours. Patient verbalized understanding and agrees with treatment plan and course of action. If patient has no primary care they may follow up with [facility] [place] [address] [place] [id number] or [facility] [address] [place] [address] or [facility] [address] [place] [address] TAM ROMERO PA-C March 16, 2019 23:55
[2019-03-17] MEDS ORDERED: ACET500C5 PO (01:31)
== END 2019-03-17 01:42 | disposition home or self-care (01) ==
LOC: FTE 21:46
DX: O9A.212 Injury, poisoning and certain other consequences of external causes complicating pregnancy, second trimester (principal); S49.91XA Unspecified injury of right shoulder and upper arm, initial encounter; S79.911A Unspecified injury of right hip, initial encounter; W18.39XA Other fall on same level, initial encounter; Y92.9 Unspecified place or not applicable; Z3A.14 14 weeks gestation of pregnancy
CPT/HCPCS: 73030; 73080; 73110; Z7610

== ENCOUNTER 2019-06-09 08:04 | Outpatient (CLI) | payer OTHER ==
[~2019-06-09 08:04] MED LIST changes: +ACET500C5 PO
== END 2019-06-09 10:45 | disposition home or self-care (01) ==
LOC: OBT 08:04 → L-D 08:06 → OBT 10:45
PROVIDERS: ATTEND Obstetrics & Gynecology
DX: O26.892 Other specified pregnancy related conditions, second trimester (principal); Z3A.26 26 weeks gestation of pregnancy; M54.9 Dorsalgia, unspecified; K08.89 Other specified disorders of teeth and supporting structures
CPT/HCPCS: 76817; 80307; 81003; 87086; Z7500; G0463